=== PATIENT | male | born 1970 | race Caucasian/White ===

== ENCOUNTER 2020-06-10 02:20 | Emergency (ER) | payer SELFPAY ==
[~2020-06-10] VITALS: Ht 162.6 cm; Wt 81.6 kg
[2020-06-10 02:20] VITALS: BP 165/97
== END 2020-06-10 02:40 ==
LOC: MED 02:20
DX: R03.0 Elevated blood-pressure reading, without diagnosis of hypertension (principal); Z02.89 Encounter for other administrative examinations; V89.2XXA Person injured in unspecified motor-vehicle accident, traffic, initial encounter; Y93.89 Activity, other specified; Y92.89 Other specified places as the place of occurrence of the external cause; Y99.8 Other external cause status
CPT/HCPCS: 99283